=== PATIENT | male | born 1980 | race Two or more races ===

== ENCOUNTER 2017-08-08 01:32 | Emergency (ER) | payer OTHER ==
[~2017-08-08] VITALS: Ht 162.6 cm; Wt 59.9 kg
[2017-08-08] MEDS ORDERED: NKM (01:41)
[2017-08-08 01:49] VITALS: BP 143/97
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
[2017-08-08 01:59] VITALS: BP 143/97
== END 2017-08-08 02:15 | disposition home or self-care (01) ==
LOC: EMR 02:06
DX: S00.33XA Contusion of nose, initial encounter (principal); W51.XXXA Accidental striking against or bumped into by another person, initial encounter; Y92.512 Supermarket, store or market as the place of occurrence of the external cause; Y99.0 Civilian activity done for income or pay; J45.909 Unspecified asthma, uncomplicated; Z91.013 Allergy to seafood
CPT/HCPCS: 99282